=== PATIENT | female | born 1945 | race Caucasian/White ===

== ENCOUNTER → 2018-12-22 | Outpatient (CLI) | payer OTHER ==
[~2018-12-22] MED LIST: PANT40TA25 PO
== END | disposition home or self-care (01) ==
LOC: OIH 13:20
PROVIDERS: ATTEND Family Medicine
DX: I70.0 Atherosclerosis of aorta (principal); Z87.891 Personal history of nicotine dependence
CPT/HCPCS: 71046

== ENCOUNTER → 2019-01-13 | Outpatient (CLI) | payer OTHER | END | disposition home or self-care (01) | LOC: RAH 10:32 | PROVIDERS: ATTEND Family Medicine | CPT/HCPCS: 71250 ==

== ENCOUNTER 2020-04-14 06:14 | Day surgery (SDC) | payer OTHER ==
[~2020-04-14] VITALS: Ht 170.2 cm; Wt 72.6 kg
[2020-04-14] MEDS ORDERED: SODIUM CHLORIDE 0.9% 1000ML 1,000 ML IV ONE (06:22)
[2020-04-14 06:38] VITALS: BP 160/80
[2020-04-14] MEDS ORDERED: PROPOFOL 10 MG/ML 20ML VIAL IV ONE ×2 (06:53→06:54)
[2020-04-14] MEDS ORDERED: SIMETHICONE 40 MG/0.6 ML ML ONE (07:13)
[2020-04-14 07:35] VITALS: BP 109/57
[2020-04-14 07:42] VITALS: BP 105/56
[2020-04-14 07:46] VITALS: BP 120/71
[2020-04-14 07:51] VITALS: BP 136/71
[2020-04-14 07:59] VITALS: BP 140/64
== END 2020-04-14 08:10 | disposition home or self-care (01) ==
LOC: DAH 06:14 → ENDO 06:14
PROVIDERS: ATTEND Internal Medicine Gastroenterology
DX: Z12.11 Encounter for screening for malignant neoplasm of colon (principal); K57.30 Diverticulosis of large intestine without perforation or abscess without bleeding; Z86.010 Personal history of colon polyps; Z85.51 Personal history of malignant neoplasm of bladder; Z79.899 Other long term (current) drug therapy
CPT/HCPCS: 93005; A4215; A4221; A4222; A4223; A4606; A4663; G0105; J2704 ×2; J7030; 43200

== ENCOUNTER → 2020-08-16 | Outpatient (CLI) | payer OTHER ==
[~2020-08-16] MED LIST changes: +IOHEXOL-350 50ML VIAL IV ONE; -PANT40TA25 PO; +PANT40TA54 PO
== END | disposition home or self-care (01) ==
LOC: RAH 13:08
PROVIDERS: ATTEND Family Medicine
DX: J43.2 Centrilobular emphysema (principal); J98.11 Atelectasis; M40.294 Other kyphosis, thoracic region
CPT/HCPCS: 71260; Q9967

== ENCOUNTER → 2021-03-01 | Outpatient (CLI) | payer OTHER ==
[~2021-03-01] MED LIST changes: -IOHEXOL-350 50ML VIAL IV ONE
== END | disposition home or self-care (01) ==
LOC: RAH 10:00
PROVIDERS: ATTEND Family Medicine
DX: M79.604 Pain in right leg (principal); M79.605 Pain in left leg
CPT/HCPCS: 93925; 93970

== ENCOUNTER 2022-08-12 12:22 | Emergency (ER) | payer OTHER ==
[~2022-08-12] VITALS: Ht 170.2 cm; Wt 81.6 kg
[2022-08-12 14:44] VITALS: BP 138/79
[2022-08-12] MEDS ORDERED: BACI30OI10 TP (15:26)
== END 2022-08-12 15:33 | disposition home or self-care (01) ==
LOC: EDH 12:22
DX: S51.812A Laceration without foreign body of left forearm, initial encounter (principal); W11.XXXA Fall on and from ladder, initial encounter; Y93.89 Activity, other specified; Y92.89 Other specified places as the place of occurrence of the external cause; Y99.8 Other external cause status
CPT/HCPCS: 12002; 12004; 99282

== ENCOUNTER → 2023-08-11 | Outpatient (CLI) | payer OTHER ==
[~2023-08-11] MED LIST changes: +BACI30OI10 TP
== END | disposition home or self-care (01) ==
LOC: OIH 10:41
PROVIDERS: ATTEND Physician Assistant Medical
DX: M16.12 Unilateral primary osteoarthritis, left hip (principal); M25.552 Pain in left hip; M62.81 Muscle weakness (generalized)
CPT/HCPCS: 73502

== ENCOUNTER 2023-10-27 05:50 | Observation (INO) | payer OTHER ==
[2023-10-24 13:13] LABS: BASOPHILS # (AUTO) 0.05 K/uL (0.00-0.20); BASOPHILS % (AUTO) 0.6 % (0.0-5.0); EOSINOPHILS # (AUTO) 0.05 K/uL (0.00-0.70); EOSINOPHILS % (AUTO) 0.6 % (0.0-8.0); HEMATOCRIT 38.2 % (36-48); IMMATURE GRANULOCYTE ABSOLUTE 0.02 K/uL (0-1); LYMPHOCYTES # (AUTO) 3.5 K/uL (1.0-4.8); LYMPHOCYTES % (AUTO) 40.7 % (21.0-51.0); MEAN CORPUSCULAR HGB CONC 31.9 g/dL (32.0-36.0); MEAN CORPUSCULAR VOLUME 90.7 fL (79-99); MONOCYTES # (AUTO) 0.5 K/uL (0.1-1.0); MONOCYTES % (AUTO) 6.3 % (3.0-13.0); NEUTROPHILS # (AUTO) 4.4 K/uL (1.8-7.7); NEUTROPHILS % (AUTO) 51.6 % (40.0-77.0); PLATELET COUNT (AUTO) 314 K/uL (130-400); RED BLOOD CELL COUNT(AUTO) 4.21 MIL/uL (4.00-5.50); RED CELL DISTRIBUTION WIDTH 14.3 % (11.0-15.5); WHITE BLOOD COUNT (AUTO) 8.5 K/uL (4.8-10.8)
[2023-10-24 13:22] LABS: ALBUMIN 3.9 g/dL (3.5-5.0); CREATININE 0.8 mg/dL (0.5-1.5); POTASSIUM 4.2 mmol/L (3.5-5.1)
[2023-10-24 13:22] LABS: APPEARANCE,URINE TURBID (CLEAR); BILIRUBIN,URINE NEGATIVE (NEGATIVE); COLOR,URINE ORANGE (YELLOW); GLUCOSE, URINE (UA) NEGATIVE (NEGATIVE); KETONES,URINE NEGATIVE (NEGATIVE); LEUKOCYTE ESTERASE ,URINE 500 Leu/uL (NEGATIVE); NITRATE,URINE NEGATIVE (NEGATIVE); OCCULT BLOOD,URINE SMALL (NEGATIVE); PROTEIN,URINE 10 mg/dL (NEGATIVE)
[2023-10-24 13:23] LABS: INR 0.94 (0.85-1.15)
[2023-10-24 13:24] LABS: PARTIAL THROMBOPLASTIN TIME 25.6 SEC (26.3-35.5)
[2023-10-24 13:30] LABS: ADD UA MICROSCOPIC YES
[2023-10-24 13:31] LABS: BACTERIA,URINE FEW /HPF (None Seen); MUCUS,URINE MOD LPF (None Seen); NON-SQUAMOUS EPITHELIAL CELL 4 /HPF (0-2); RBC,URINE 51-100 /HPF (0-1); SQUAMOUS EPITHELIAL CELL,UR MOD /HPF (0-2); WBC,URINE 51-100 /HPF (0-1)
[2023-10-24 14:25] VITALS: BP 150/78; PULSE 76; RESP 18
[~2023-10-27] VITALS: Ht 165.1 cm; Wt 74.0 kg
[2023-10-27] VITALS (26 sets, daily range): BP systolic 131–170; BP diastolic 49–78; PULSE 49–76; RESP 8–18
[~2023-10-27 05:50] MED LIST changes: +ATOR10 PO; -BACI30OI10 TP; -PANT40TA54 PO
[2023-10-27] MEDS ORDERED: LACTATED RINGERS 1000ML 1,000 ML IV ONE (06:32)
[2023-10-27] MEDS ORDERED: PROPOFOL 10 MG/ML 20ML VIAL IV ONE (06:37)
[2023-10-27] MEDS ORDERED: DEXAMETHASONE SOD PHOSPHATE 10MG/ML 1ML VIAL ONE (06:37)
[2023-10-27] MEDS ORDERED: GLYCOPYRROLATE 1 MG/5 ML SYRINGE ONE (06:37)
[2023-10-27] MEDS ORDERED: LIDOCAINE PF 100MG/5ML (2%) SYRINGE 5ML ONE (06:37)
[2023-10-27] MEDS ORDERED: SUCCINYLCHOLINE CHLORIDE 20 MG/ML 10 ML VIAL ONE (06:37)
[2023-10-27] MEDS ORDERED: ONDANSETRON 4MG INJ ONE (06:37)
[2023-10-27] MEDS ORDERED: ROCURONIUM 10MG/1ML SYR 10 MG/ML ML ONE ×2 (06:38→07:49)
[2023-10-27] MEDS ORDERED: FENTANYL CITRATE PF 50 MCG/1 ML 2ML VIAL ONE ×2 (06:38→07:56)
[2023-10-27] MEDS ORDERED: MIDAZOLAM HCL 1 MG/ML 2ML VIAL ONE (06:38)
[2023-10-27] MEDS ORDERED: NEOSTIGMINE 5MG/5ML SYR IV ONE (06:38)
[2023-10-27] MEDS: CEFAZOLIN SODIUM 2 GM VIAL ONE ×2 (06:58→07:44)
[2023-10-27] MEDS ORDERED: KETAMINE 50MG/ML SYRINGE 50 MG/ML DISP.SYRIN ONE (07:00)
[2023-10-27] MEDS ORDERED: ALBUMIN (HUMAN) 5% 250 ML IV ONE (07:00)
[2023-10-27] MEDS ORDERED: ROPIVACAINE 0.5% 5MG/ML 30ML ONE (07:21)
[2023-10-27] MEDS: TRANEXAMIC ACID 1000MG/10ML ONE ×2 (07:36→09:22)
[2023-10-27] MEDS ORDERED: SUGAMMADEX SODIUM 200 MG/2 ML VIAL IV ONE (09:29)
[2023-10-27] MEDS ORDERED: MEPERIDINE-PF 25 MG/ML SYG ONE ×2 (09:38→10:24)
[2023-10-27] MEDS ORDERED: FERROUS FUMARATE 324 MG TABLET PO PRN (10:00)
[2023-10-27] MEDS ORDERED: KCL 20 MEQ ERTAB PO PRN (10:00)
[2023-10-27] MEDS ORDERED: POTASSIUM CHLORIDE 20MEQ/100ML 100 ML IV PRN (10:00)
[2023-10-27] MEDS ORDERED: TRAMADOL HCL 50 MG TABLET PO PRN (10:00)
[2023-10-27] MEDS: 0.9%NACL 1000ML 1,000 ML IV SCH ×2 (10:00→21:24)
[2023-10-27] MEDS ORDERED: CALCIUM CARB 500MG PO PRN (10:00)
[2023-10-27] MEDS ORDERED: CYCLOBENZAPRINE HCL 10 MG TABLET PO PRN (10:00)
[2023-10-27] MEDS ORDERED: POTASSIUM CHLORIDE 10% ELIXIR 20 MEQ/15 ML UDCUP PO PRN (10:00)
[2023-10-27] MEDS ORDERED: KETOROLAC 15MG/ML VIAL (15MG/ML) IV PRN (10:00)
[2023-10-27] MEDS ORDERED: ONDANSETRON 4MG INJ IVP PRN (10:00)
[2023-10-27] MEDS ORDERED: KETOROLAC 15MG/ML VIAL (15MG/ML) ONE (10:50)
[2023-10-27] MEDS: KETOROLAC 15MG/ML VIAL (15MG/ML) IV SCH ×2 (10:52→21:33)
[2023-10-27] MEDS ORDERED: GABAPENTIN 100 MG CAPSULE PO SCH ×2 (14:00→22:00)
[2023-10-27] MEDS: CEFAZOLIN SODIUM 2 GM VIAL IVPB SCH (17:04)
[2023-10-27] MEDS: DOCUSATE SODIUM 100 MG CAP PO SCH (21:00)
[2023-10-28] VITALS: BP 105/43; PULSE 80; RESP 18
[2023-10-28] MEDS: 0.9%NACL 1000ML 1,000 ML IV SCH (00:29)
[2023-10-28] MEDS ORDERED: CEFAZOLIN SODIUM 2 GM VIAL ONE (00:48)
[2023-10-28] MEDS: CEFAZOLIN SODIUM 2 GM VIAL IVPB SCH (01:05)
[2023-10-28] MEDS: KETOROLAC 15MG/ML VIAL (15MG/ML) IV SCH (02:54)
[2023-10-28 04:00] VITALS: BP 105/53; PULSE 78; RESP 17
[2023-10-28] MEDS: HYDROCODONE/ACETAMINOPHEN 5/325 MG TAB PO PRN ×3 (04:20→23:44)
[2023-10-28 05:26] LABS: HEMATOCRIT 28.5 % (36-48); MEAN CORPUSCULAR HEMOGLOBIN 29.6 pg (27.0-33.0); MEAN CORPUSCULAR HGB CONC 31.9 g/dL (32.0-36.0); MEAN CORPUSCULAR VOLUME 92.8 fL (79-99); RED BLOOD CELL COUNT(AUTO) 3.07 MIL/uL (4.00-5.50); RED CELL DISTRIBUTION WIDTH 14.5 % (11.0-15.5); WHITE BLOOD COUNT (AUTO) 10.9 K/uL (4.8-10.8)
[2023-10-28 05:40] LABS: CREATININE 0.8 mg/dL (0.5-1.5); POTASSIUM 3.4 mmol/L (3.5-5.1)
[2023-10-28 08:00] VITALS: BP 95/52; PULSE 73; RESP 16
[2023-10-28] MEDS: ASPIRIN 325MG EC TAB PO SCH (08:51)
[2023-10-28] MEDS: DOCUSATE SODIUM 100 MG CAP PO SCH ×2 (08:51→21:00)
[2023-10-28] MEDS: POLYETHYLENE GLYCOL 3350 17 GM POWD.PACK PO SCH (08:52)
[2023-10-28 12:00] VITALS: BP 114/48; PULSE 76; RESP 16
[2023-10-28 16:00] VITALS: BP_SYST 138; BP_SYST 142; BP_DIAS 61; BP_DIAS 64; PULSE 80; RESP 16
[2023-10-28 20:00] VITALS: BP 152/55; PULSE 83; RESP 17
[2023-10-29] VITALS (9 sets, daily range): BP systolic 102–146; BP diastolic 52–72; PULSE 71–88; RESP 17–20; O2SAT 96–98
[2023-10-29] MEDS: HYDROCODONE/ACETAMINOPHEN 5/325 MG TAB PO PRN ×3 (06:54→20:41)
[2023-10-29] MEDS: POLYETHYLENE GLYCOL 3350 17 GM POWD.PACK PO SCH (09:07)
[2023-10-29] MEDS: DOCUSATE SODIUM 100 MG CAP PO SCH ×2 (09:07→20:35)
[2023-10-29] MEDS: ASPIRIN 325MG EC TAB PO SCH (09:07)
[2023-10-30] MEDS: HYDROCODONE/ACETAMINOPHEN 5/325 MG TAB PO PRN ×2 (03:20→09:23)
[2023-10-30 03:36] VITALS: BP 125/59; PULSE 75; RESP 20
[2023-10-30 08:00] VITALS: BP 132/84; PULSE 85; RESP 14
[2023-10-30 08:30] VITALS: O2SAT 94
[2023-10-30] MEDS: DOCUSATE SODIUM 100 MG CAP PO SCH (08:34)
[2023-10-30] MEDS: ASPIRIN 325MG EC TAB PO SCH (08:34)
[2023-10-30] MEDS: POLYETHYLENE GLYCOL 3350 17 GM POWD.PACK PO SCH (08:34)
[2023-10-30] MEDS ORDERED: BISACODYL 10 MG SUPP.RECT RC PRN (10:00)
[2023-10-30 11:50] VITALS: BP 94/61; PULSE 84; RESP 16
[2023-10-30 15:45] VITALS: BP 92/45; PULSE 73; RESP 18
[2023-10-30 16:45] VITALS: BP 136/76; PULSE 71; RESP 14
[2023-10-30] MEDS ORDERED: ASPI-891 PO (16:51)
[2023-10-30] MEDS ORDERED: DOCU-116 PO (16:51)
[2023-10-30] MEDS ORDERED: HYDR-4060 PO (16:51)
[2023-10-30] MEDS ORDERED: CYCL-309 PO (16:51)
== END 2023-10-30 18:00 | disposition home health service (06) ==
LOC: DAH 05:50 → DAHIP 05:51 → DAH 05:51 → 4CH 11:00
PROVIDERS: ADMIT Student in an Organized Health Care Education/Training Program; ATTEND Student in an Organized Health Care Education/Training Program
DX: M16.12 Unilateral primary osteoarthritis, left hip (principal); M25.552 Pain in left hip; D62 Acute posthemorrhagic anemia; Z79.899 Other long term (current) drug therapy; Z98.890 Other specified postprocedural states
CPT/HCPCS: 82040; 80048 ×2; 85025; 85610; 85730; 87077; 87088; 87186; 84134; 86140; 81001; 36415 ×2; 93005; 87641; 73502; 72170; 96365; 96375; 73521; 97161; 97530 ×16; 27130; 96376; 96366; 85027; 97116 ×5; G0378 ×73; A4663; J7120 ×2; C1776; P9045; J3010 ×2; J3490 ×3; J1100; J2710; J0330; J2001; J2250; J2704; J2405; J2175 ×2; J1885 ×4; J0690 ×3; A4649 ×3; G0168; A6255; A5120; A4215; A4223; A4222; A4221; J7030; J2795

== ENCOUNTER 2023-12-13 18:50 | Emergency (ER) | payer OTHER ==
[~2023-12-13] VITALS: Ht 167.6 cm; Wt 70.3 kg
[~2023-12-13 18:50] MED LIST changes: +ASPI-891 PO; +CYCL-309 PO; +DOCU-116 PO; +HYDR-4060 PO
[2023-12-13] MEDS ORDERED: FAMOTIDINE 20MG VIAL IV ONE (19:30)
[2023-12-13 19:48] LABS: BASOPHILS # (AUTO) 0.08 K/uL (0.00-0.20); BASOPHILS % (AUTO) 0.7 % (0.0-5.0); EOSINOPHILS # (AUTO) 0.11 K/uL (0.00-0.70); HEMATOCRIT 36.8 % (36-48); IMMATURE GRANULOCYTE ABSOLUTE 0.03 K/uL (0-1); LYMPHOCYTES # (AUTO) 3.1 K/uL (1.0-4.8); LYMPHOCYTES % (AUTO) 29.2 % (21.0-51.0); MEAN CORPUSCULAR HEMOGLOBIN 27.2 pg (27.0-33.0); MEAN CORPUSCULAR HGB CONC 30.7 g/dL (32.0-36.0); MEAN CORPUSCULAR VOLUME 88.5 fL (79-99); MONOCYTES # (AUTO) 0.7 K/uL (0.1-1.0); MONOCYTES % (AUTO) 6.7 % (3.0-13.0); NEUTROPHILS # (AUTO) 6.6 K/uL (1.8-7.7); NEUTROPHILS % (AUTO) 62.1 % (40.0-77.0); PLATELET COUNT (AUTO) 360 K/uL (130-400); RED BLOOD CELL COUNT(AUTO) 4.16 MIL/uL (4.00-5.50); RED CELL DISTRIBUTION WIDTH 13.9 % (11.0-15.5); WHITE BLOOD COUNT (AUTO) 10.7 K/uL (4.8-10.8)
[2023-12-13 20:03] LABS: INR 0.96 (0.85-1.15); PROTHROMBIN TIME 11.2 SEC (9.6-11.6)
[2023-12-13 20:04] LABS: ALBUMIN 3.8 g/dL (3.5-5.0); BILIRUBIN,TOTAL 0.3 mg/dL (0.2-1.0); CREATININE 0.9 mg/dL (0.5-1.5); PARTIAL THROMBOPLASTIN TIME 25.6 SEC (26.3-35.5); TOTAL PROTEIN, SERUM 7.4 g/dL (6.0-8.3)
[2023-12-13] MEDS ORDERED: PANT40TA PO (20:21)
[2023-12-13] MEDS ORDERED: POTA-192 PO (20:25)
[2023-12-13] MEDS ORDERED: KCL 20 MEQ ERTAB PO ONE (20:30)
[2023-12-13 20:46] VITALS: BP 137/84; PULSE 98; RESP 18; O2SAT 99
== END 2023-12-13 20:47 | disposition home or self-care (01) ==
LOC: EDH 18:50
DX: K92.2 Gastrointestinal hemorrhage, unspecified (principal); D64.9 Anemia, unspecified; E87.6 Hypokalemia; Z79.82 Long term (current) use of aspirin
CPT/HCPCS: 99285; 96374; 71045; 82270; 84484; 80053; 85025; 85610; 85730; 86850; 86900; 86901; 36415; 93005; J3490

== ENCOUNTER 2025-04-04 14:13 | Emergency (ER) | payer OTHER ==
[~2025-04-04] VITALS: Ht 167.6 cm; Wt 68.0 kg
[~2025-04-04 14:13] MED LIST changes: -ASPI-891 PO; -CYCL-309 PO; -DOCU-116 PO; -HYDR-4060 PO; +PANT40TA PO
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
[2025-04-04] MEDS: NEOMY SULF/BACITRA/POLYMYXIN B 1 EACH PACKET TP ONE (14:56)
[2025-04-04] MEDS: LIDOCAINE HCL 1% 20 ML VIAL INJ ONE (14:56)
[2025-04-04] MEDS: acetaMINOPHEN 500 MG TABLET PO ONE (14:57)
[2025-04-04] MEDS: teTANUS/diphthERIA TOXOID [ADULT] 0.5 ML VIAL IM ONE (14:59)
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
--- NOTE | 2025-04-04 16:05 | HMCIMG ---
Exam Type: HAND 3+VWS LT History: LEFT HAND PAIN WITH LACERATION TO LEFT 2ND METACARPAL JOINT Comparison: none Findings: The examination shows degenerative changes with narrowing of the interphalangeal joint spaces, with subchondral sclerosis. No fractures or dislocations are seen. There are no radiopaque foreign bodies. There are no areas of bone destruction. Impression: Osteoarthritis of the hand.
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
--- NOTE | 2025-04-04 16:44 | NUR ---
POSTERIOR ANKLE SPLINT PLACED, PT TOLERATED WELL. CRUTCH TRAINING GIVEN PT STATES HAS USED CRUTCHES BEFORE AND ABLE TO EXPLAIN CORRECT USE.
[2025-04-04 16:45] VITALS: BP 125/65; PULSE 74; RESP 16; TEMP 98.1; O2SAT 98
[2025-04-04] MEDS ORDERED: ACET-2079 PO (17:10)
--- NOTE | 2025-04-04 18:44 | NUR ---
WAS AWAITING FAMILY TO COME PICK HER UP. SON IN LAW PICKED HER UP
== END 2025-04-04 18:44 | disposition home or self-care (01) ==
LOC: EDH 14:13
DX: S82.61XA Displaced fracture of lateral malleolus of right fibula, initial encounter for closed fracture (principal); S61.412A Laceration without foreign body of left hand, initial encounter; S70.02XA Contusion of left hip, initial encounter; S80.02XA Contusion of left knee, initial encounter; E78.00 Pure hypercholesterolemia, unspecified; Z79.899 Other long term (current) drug therapy; Z90.89 Acquired absence of other organs; Z96.659 Presence of unspecified artificial knee joint; Z98.51 Tubal ligation status; V89.2XXA Person injured in unspecified motor-vehicle accident, traffic, initial encounter; Y93.89 Activity, other specified; Y92.89 Other specified places as the place of occurrence of the external cause; Y99.8 Other external cause status
CPT/HCPCS: 12001; 73130; 73502; 73562; 73610; 90471; 90714; 99283

== ENCOUNTER 2025-04-13 17:50 | Emergency (ER) | payer OTHER ==
[~2025-04-13] VITALS: Ht 167.6 cm; Wt 68.0 kg
[~2025-04-13 17:50] MED LIST changes: +ACET-2079 PO
--- NOTE | 2025-04-13 18:38 | ERN ---
General Chief Complaint: Constipation Stated Complaint: CONSTIPATION, RECTAL HERNIA Time Seen by MD: 17:53 Source: patient History of Present Illness Initial Comments PATIENT IS A AN 79-YEAR-OLD FEMALE COMING IN TO BE EVALUATED FOR CONSTIPATION. PER PATIENT SHE HAS BEEN TAKING HIM PAIN MEDICATION HAS BEEN MADE HER BECOME CONSTIPATED. SHE STATES THAT SHE STARTED PAIN MEDICATIONS FOR A FRACTURED ANKLE FOR ONE WEEK. Allergies: Coded Allergies: fexofenadine (Unverified Allergy, Severe, HIVES, 10/27/23) Home Meds Active Scripts Acetaminophen with Codeine (Acetaminophen-Cod #3 Tablet) 300 Mg-30 Mg Tablet, 1 TAB PO Q6H PRN for MODERATE TO SEVERE PAIN, #112 TAB 0 Refills Prov:RANDA BRAGA CREDIT VERIFIER 04/04/25 Pantoprazole Sodium (Protonix) 40 Mg Tablet.dr, 40 MG PO BID, #60 TAB Prov:RANDA BRAGA CREDIT VERIFIER 12/13/23 Reported Medications Atorvastatin Calcium (LIPITOR) 20 Mg Tab, 20 MG PO DAILYBKFST, TAB 10/24/23 Past Medical History Past Medical History: Constipation, High Cholesterol Past Surgical History: Other, BTL Surgical History Other: BILAT KNEE SX, L HIP SX, CATARACT Social History Social History: Negative Female( History) History: Not Applicable ROS Dictation CONSTITUTIONAL: NO CHILLS, NO FEVER, NO WEAKNESS, NO DIAPHORESIS, NO MALAISE. HEAD/FACE: NO SIGNS OF TRAUMA. EENT: NO EYE PAIN, NO BLURRED VISION, NO TEARING, NO DOUBLE VISION, NO EAR PAIN, NO EAR DISCHARGE, NO NOSE PAIN, NO NASAL CONGESTION, NO THROAT PAIN, NO THROAT SWELLING, NO MOUTH PAIN. RESPIRATORY: NO COUGH, NO ORTHOPNEA, NO SOB, NO STRIDOR, NO WHEEZING. CARDIOVASCULAR: NO CHEST PAIN, NO EDEMA, NO PALPITATIONS, NO SYNCOPE. GASTROINTESTINAL/ABDOMINAL: ABDOMINAL PAIN, CONSTIPATION, NO DIARRHEA, NO NAUSEA, NO VOMITING. GENITOURINARY: NO ABNORMAL DISCHARGE, NO DYSURIA, NO FREQUENT URINATION, NO HEMATURIA. NO COMPLAINTS OF PAIN IN THE GENITALS. MUSCULOSKELETAL: NO BACK PAIN, NO GOUT, NO JOINT PAIN, NO JOINT SWELLING, NO MUSCLE PAIN, NO MUSCLE STIFFNESS, NO NECK PAIN. INTEGUMENTARY: NO CHANGE IN COLOR, NO CHANGE IN HAIR/NAILS, NO DRYNESS, NO LESION, NO LUMPS, NO RASH. NEUROLOGICAL/PSYCH: NO ANXIETY, NOT DEPRESSED, NO EMOTIONAL PROBLEM, NO HEADA YARELIS, NO NUMBNESS, NO PRE-EXISTING DEFICIT, NO HISTORY OF SEIZURES, NO TREMORS, NO WEAKNESS. HEMATOLOGIC/LYMPHATIC: NOT ANEMIC, NO HISTORY OF BLOOD CLOTS, NO APPARENT BLEEDING, NO BRUISING, GLANDS NOT SWOLLEN. ALL SYSTEMS NEGATIVE, EXCEPT NOTED. Physical Exam Physical Exam Dictation VITAL SIGNS: REVIEWED. GENERAL APPEARANCE: ALERT, ORIENTED X3, NO ACUTE DISTRESS, OBESE. HEAD AND FACE: NON-TRAUMATIC. EYES: PERRL, PINK CONJUNCTIVAS, EYELID NO TRAUMA, ANTERIOR CHAMBER CLEAR. EARS: PINNAS INTACT AND NO SIGNS OF TRAUMA OR ERYTHEMA. EAR CANALS CLEAR AND NO DISCHARGE. TMS NO ERYTHEMA. NOSE: NO DISCHARGE, NO BLEEDING. OROPHARYNX: MOUTH NORMAL, TEETH NO CARIES, TONGUE PINK. PHARYNX CLEAR, NO ERYTHEMA. TONSILS NO EXUDATES, NO ABSCESSES NOTED. MUCOUS MEMBRANE MOIST. NECK: SUPPLE, NON-TENDER, NO THYROMEGALY, NO MASSES, NO JVD, NO BRUITS. BREAST: DEFERRED. CHEST: NO TENDERNESS, NO CREPITUS, NO PARADOXICAL MOVEMENT, NO RETRACTIONS. LUNGS: CLEAR, WELL-VENTILATED, SYMMETRIC, NO RALES, NO WHEEZING, NO RHONCHI, NO STRIDOR, GOOD BREATH SOUNDS BILATERALLY. HEART: REGULAR RATE, REGULAR RHYTHM, NO MURMUR, NO GALLOPS. VASCULAR: NO PERIPHERAL EDEMA. ABDOMEN: SOFT, POSITIVE BOWEL SOUNDS, NONDISTENDED, NO GUARDING, NONTENDER, NO REBOUND, NO MASSES NO HEPATOMEGALY, NO SPLENOMEGALY, NO ABEL'S SIGN, NO HERNIAS. RECTAL: DEFERRED. GENITAL: DEFERRED. NEUROLOGICAL: NORMAL SPEECH, GROSS MOTOR FUNCTION INTACT, GROSS SENSORY FUNCTION INTACT. MUSCULOSKELETAL: NECK NONTENDER, FULL RANGE OF MOTION, BACK NONTENDER, FULL RANGE OF MOTION. EXTREMITIES: NONTENDER, FULL RANGE OF MOTION. SKIN: COLOR PINK, DRY, NO TURGOR, NO RASH, NO LACERATIONS, NO ABRASIONS, NO CONTUSIONS. LYMPHATICS: DEFERRED. Results Laboratory and Microbiology Labs Reviewed?: Yes MDM MDM: DIFFERENTIAL DIAGNOSIS: CONSTIPATION, ABDOMINAL PAIN, HISTORY OF ANKLE FRACTURE, RATIONALE: TESTS CONSIDERED AND ORDERED SECONDARY TO SHARED DECISION MAKING INCL UDE: PREVIOUS OUTSIDE RECORDS REVIEWED: OLD ER VISITS. RISK OF COMPLICATION AND/OR MORBIDITY OR MORTALITY OF PATIENT MANAGEMENT: NONE MEDICATIONS-PER MEDICATION RECONCILIATION NEED FOR HOSPITALIZATION: PATIENT DOES NOT MEET CRITERIA FOR HOSPITALIZATION. NEED FOR EMERGENCY MAJOR/MINOR SURGERY: NO THERE ARE NO SOCIAL CONCERNS WITH THIS PATIENT. PRESCRIPTION DRUG MANAGEMENT PRESCRIPTIONS WILL INCLUDE SYMPTOMATIC CARE PATIENT'S PRIOR EXTERNAL MEDICAL RECORDS FROM OTHER ER VISITS WERE REVIEWED BY ME INDICATED. PRIOR TESTING AND RESULTS FROM PREVIOUS VISITS WERE REVIEWED. PRIOR TESTS WERE TAKEN INTO ACCOUNT WITH MEDICAL DECISION MAKING AND RESOURCE UTILIZATION, INDEPENDENT HISTORIAN/HISTORIANS WERE USED TO OBTAIN COMPLETE MEDICAL HISTORY. I INDEPENDENTLY INTERPRETED THE TEST THAT WERE PERFORMED, RESULTS WERE REVIEWED BY ME AND CONSIDERED FINDINGS ON RADIOLOGY IF ORDERED. MEDICAL MANAGEMENT AND EXAMINATION INTERPRETATION DISCUSSIONS WERE HAD BY ME WITH OTHER QUALIFIED HEALTHCARE PROFESSIONALS INDICATED FOR THE PATIENT'S CARE. ED Course Orders Procedure Category Date Status Time Cbc With Differential LAB 04/13/25 Logged 18:15 Comprehensive LAB 04/13/25 Logged Metabolic Panel 18:15 Urinalysis Profile LAB 04/13/25 Logged 18:15 Vital Signs Date Time Temp Pulse Resp B/P (MAP) Pulse Ox O2 Delivery O2 Flow Rate FiO2 04/13/25 18:05 97.5 87 18 145/72 97 Room Air 0 DX & DISP Disposition: Other(Comment) (PATIENT CARE TRANSITIONED TO DR. HARDING) Departure Impression: Primary Impression: Constipation Condition: Stable Referrals: LIONEL CONDE JR., MD (PCP) TRISTAN PAGE MD April 13, 2025 18:38
[2025-04-13] MEDS: MAGNESIUM CITRATE 296 ML SOLUTION PO ONE (19:03)
[2025-04-13 19:20] LABS: BASOPHILS # (AUTO) 0.05 K/uL (0.00-0.20); BASOPHILS % (AUTO) 0.5 % (0.0-5.0); EOSINOPHILS # (AUTO) 0.04 K/uL (0.00-0.70); EOSINOPHILS % (AUTO) 0.4 % (0.0-8.0); IMMATURE GRANULOCYTE ABSOLUTE 0.05 K/uL (0-1); LYMPHOCYTES # (AUTO) 0.9 K/uL (1.0-4.8); LYMPHOCYTES % (AUTO) 9.6 % (21.0-51.0); MEAN CORPUSCULAR HGB CONC 32.2 g/dL (32.0-36.0); MEAN CORPUSCULAR VOLUME 90.2 fL (79-99); MONOCYTES # (AUTO) 0.6 K/uL (0.1-1.0); MONOCYTES % (AUTO) 5.9 % (3.0-13.0); NEUTROPHILS # (AUTO) 8.1 K/uL (1.8-7.7); NEUTROPHILS % (AUTO) 83.1 % (40.0-77.0); PLATELET COUNT (AUTO) 368 K/uL (130-400); RED CELL DISTRIBUTION WIDTH 13.9 % (11.0-15.5); WHITE BLOOD COUNT (AUTO) 9.8 K/uL (4.8-10.8)
[2025-04-13 19:36] LABS: CREATININE 0.6 mg/dL (0.5-1.0); POTASSIUM 4.3 mmol/L (3.5-5.1)
[2025-04-13 19:40] LABS: ALBUMIN 3.3 g/dL (3.5-5.0); BILIRUBIN,TOTAL 0.9 mg/dL (0.2-1.0); TOTAL PROTEIN, SERUM 7.3 g/dL (6.0-8.3)
--- NOTE | 2025-04-13 20:16 | HMCIMG ---
ABD 1VW HISTORY: Constipation COMPARISON: None FINDINGS: A frontal projection of the abdomen was obtained. Left hip prosthesis is seen. There is scoliosis. A nonspecific bowel gas pattern is seen. Fecal material is seen in the colon. Degenerative changes of the thoracolumbar spine are noted. IMPRESSION: 1. A nonspecific bowel gas pattern is seen. Large amount of fecal material is seen in the colon suspicious for constipation.
[2025-04-13 20:40] VITALS: BP 141/73; PULSE 85; RESP 18; TEMP 97.9; O2SAT 97
== END 2025-04-13 20:44 | disposition home or self-care (01) ==
LOC: EDH 17:50
DX: K59.00 Constipation, unspecified (principal); E78.00 Pure hypercholesterolemia, unspecified; Z79.899 Other long term (current) drug therapy; Z98.51 Tubal ligation status
CPT/HCPCS: 36415; 74018; 80053; 85025; 99283